=== PATIENT | male | born 1970 | race Caucasian/White ===

== ENCOUNTER 2017-06-29 21:41 | Emergency (ER) | payer OTHER ==
[~2017-06-29] VITALS: Ht 172.7 cm; Wt 104.3 kg
[2017-06-29] MEDS ORDERED: CEFAZOLIN SOD 1 GM in WATER STERILE 10ML VIAL 10 ML IV STA (22:01)
[2017-06-29] MEDS ORDERED: MORPHINE SULFATE 2 MG/ML SYR IV STA (22:10)
[2017-06-29] MEDS ORDERED: ONDANSETRON HCL 4 MG ORAL DISINTEGRATING TAB PO ONE (22:15)
--- NOTE | 2017-06-29 22:27 | Diagnostic Imaging Report ---
EXAM: CHEST SINGLE (PORTABLE), AP 1 view INDICATION: Puncture wound, fall COMPARISON: None FINDINGS: LINES/TUBES: None LUNGS: No consolidations or edema. PLEURA: No effusions or pneumothorax. HEART AND MEDIASTINUM: Normal size and contour. BONES AND SOFT TISSUES: No acute findings. IMPRESSION: No acute thoracic abnormality. Signed by: Dr. Batsheva Headley M.D. on 06/29/2017 10:24 PM
--- NOTE | 2017-06-29 22:27 | Diagnostic Imaging Report ---
EXAM: FOREARM LEFT 2 VIEW, AP and lateral INDICATION: Left arm puncture wound, fall COMPARISON: None FINDINGS: BONES: No acute fractures. JOINTS: No malalignment. SOFT TISSUES: Soft tissue swelling of the wrist with subcutaneous emphysema. IMPRESSION: Soft tissue swelling of the wrist with subcutaneous emphysema. There are a few radiopaque densities project over the distal forearm that could be radiopaque foreign bodies versus related to overlying material. Signed by: Dr. Batsheva Headley M.D. on 06/29/2017 10:23 PM
--- NOTE | 2017-06-29 22:28 | Diagnostic Imaging Report ---
EXAM: PELVIS AP 1-2 VIEWS INDICATION: Fall COMPARISON: None FINDINGS: BONES: No acute fractures. JOINTS: No malalignment. SOFT TISSUES: Normal IMPRESSION: Normal pelvic x-ray. Signed by: Dr. Batsheva Headley M.D. on 06/29/2017 10:24 PM
== END 2017-06-29 23:42 | disposition other institution (70) ==
LOC: ER 21:41
CPT/HCPCS: 71045; 72170; 99284; J0690; J2270